=== PATIENT | male | born 1955 ===

== ENCOUNTER 2023-12-07 16:52 | Inpatient (IN) | payer OTHER ==
--- OUTSIDE RECORDS SUMMARY | 2023-12-07 18:52 | XMS REPORT | Continuity of Care Document ---
Author Name Unknown Address [address] [place] [address] [facility] Address 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 Role Phone Pcp, Patient Does Not Have A Primary Care Physic alex Only, Ang Db Test Attending Clinician Unavailabl e Therapy, [facility] Covid Infusion Attending Clinician Unavailable Misael Vitale MD Attending Clinician MISAEL VITALE Attending Clinician Unavailable Lashaun López RN Attending Clinician Unavailable Rosario Love MD Attending Clinician [phone] ROSARIO LOVE Attending Clinician Unavailable Payers Payer Name Policy Type Policy Number Effective Date Expirati on Date Source Allergies, Adverse Reactions, Alerts Allergy Name Allergy Type Status Severity Reaction(s) Onset Date Inactive Date Treating Clinician Comments Source NO KNOWN ALLERGIE S Drug Class Active [facility] Social History Social Habit Start Date Stop Date Quantity Comments Source Exposure to SARS-CoV-2 (event) Yes [facility] Sex Assigned At 1955 00:00:00 1955 00:00:00 [facility] Smoking Status Start Date Stop Date Source Unknown if ever smoked [facility] Medications Ordered Medication Name Filled Medication Name Start Date Stop Date Current Medication? Ordering Clinician Indication Dosage Frequency Signature (SIG) Comments Components Source casirivimab -imdevimab 1200 mg in 60 mL NS MINI-BAG 11-24 17:15: 00 11-24 16:10 :00 No [id number] 1200mg 1,200 mg, IV Infusion, ONCE, Administer over 20 Minutes, On Joya 11/24/20 at 1215, For 1 dose
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 &nbs p;
[facility] Vital Signs Vital Name Observation Time Observation Value Comments S saritha Systolic blood pressure 2020-11-24 16:48:00 137 mm[Hg] [facility] acute hospital Diastolic blood pressure 2020-11-24 16:48:00 82 mm[Hg] General acute hospital Heart rate 2020-11-24 16:48:00 89 /min [facility] Body temperature 2020-11-24 16:48:00 36.67 [facility] Respiratory rate 2020-11-24 16:48:00 16 /min [facility] Oxygen saturation in Arterial blood by Pulse oximetry 2020-11-24 16:48:00 93 /min [facility] acute hospital Body height 2020-11-24 15:26:00 175.3 cm [facility] Body weight 2020-11-24 15:26:00 86.183 kg [facility] BMI 2020-11-24 15:26:00 28.06 kg/m2 [facility] Encounters Start Date/Time End Date/Time Encounter Type Admission Type Attending Clinicians Care Facility Care Department Encounter ID Source 2020-11-29 00:00:00 2020-11-29 00:00:00 Telephone Only, Ang Db Test [facility] Nika Moreno?[facility] [id number] [facility] 2020-11-24 10:15:26 2020-11-24 11:15:26 Nurse Visit Therapy, [facility] Covid Infusion Misael Vitale [facility] [id number] [facility] 2020-11-24 10:30:00 2020-11-24 10:30:00 Outpatient [facility] [id number] [facility] 2020-11-24 10:30:00 2020-11-24 10:30:00 Outpatient MISAEL MALDONADO [facility] [id number] [facility] 2020-11-23 00:00:00 2020-11-23 00:00:00 Telephone Lashaun López [facility] [id number] [facility] 2020-11-21 13:48:15 2020-11-21 14:03:15 Laboratory Only Only, Ang Db Test [facility] Nika Moreno?T[facility] [id number] [facility] 2020-11-21 14:00:00 2020-11-21 14:00:00 Outpatient ROSARIO HENDERSON [facility] [id number] [facility]
[2023-12-07] MEDS ORDERED: ACETAMINOPHEN 500 MG TAB PO PRN (19:51)
[2023-12-07] MEDS ORDERED: BISACODYL 10 MG RECTAL SUPP PR PRN (20:09)
[2023-12-07] MEDS: INSULIN REGULAR (HUMAN) 100 UNIT/ML SQ SCH (21:00)
[2023-12-07] MEDS: ROSUVASTATIN 10 MG TAB PO SCH (22:14)
[2023-12-07] MEDS: HYDRALAZINE HCL 25 MG TABLET PO SCH (22:15)
[2023-12-07] MEDS: APIXABAN 2.5 MG TABLET PO SCH (22:15)
[2023-12-07] MEDS: carvediloL 6.25 MG TAB PO SCH (22:15)
[2023-12-08] MEDS: MAGNESIUM HYDROXIDE 8% 30 ML PO PRN (01:13)
[2023-12-08 04:48] LABS: Specific Gravity 1.028 (1.005-1.030); Sqamous Epithelial <5 /HPF (None Seen); Urine Bacteria None Seen /HPF (<20); Urine Bilirubin NEGATIVE (Negative); Urine Blood Negative (Negative); Urine Clarity Clear (Clear); Urine Color Yellow (Yellow); Urine Culture Reflex Order NOT NEEDED; Urine Glucose NEGATIVE (Negative); Urine Ketones TRACE (Negative); Urine Micro Reflex YN NO BILL MICROSCOPIC; Urine Mucus 1+ /HPF (None Seen); Urine Nitrite NEGATIVE (Negative); Urine Protein 1+ (Negative); Urine Urobilinogen Normal (Normal); Urine WBC <5 /HPF (<5); Urine pH 5.5 (5.0-7.0)
[2023-12-08 06:57] LABS: Absolute Basophils 0.1 K/uL (0-0.5); Absolute Eosinophils 0.7 K/uL (0-0.5); Absolute Monocytes 1.1 K/uL (0.1-1.3); Absolute Neutrophil 8.9 K/uL (1.8-8.0); Basophils % 1.1 % (0-1.3); Eosinophils % 5.2 % (0-4.4); Hematocrit 43.8 % (39.6-49.0); Hemoglobin 14.5 g/dL (13.6-17.9); Lymphocytes % 15.6 % (15.3-44.8); MCH 28.6 pg (27.0-35.0); MCHC 33.1 g/dL (32.0-36.0); MCV 86.5 fL (80-100); MPV 9.8 fL (7.6-11.3); Monocytes % 8.4 % (3.3-12.3); Neutrophils % 69.7 % (41.7-73.7); Platelets 307 thou/uL (152-406); RBC Red Blood Cell Count 5.06 M/uL (4.33-5.43); Red Cell Distribution Width 13.7 % (12.1-15.2)
[2023-12-08 07:11] LABS: Albumin 3.2 g/dL (3.4-5.0); Anion Gap 8.5 mEq/L (5.0-15.0); Magnesium 2.2 mg/dL (1.6-2.4); Potassium 3.5 mEq/L (3.5-5.1)
[2023-12-08] MEDS: ASPIRIN 81 MG CHEWABLE TABLET PO SCH (08:57)
[2023-12-08] MEDS: NICOTINE 14 MG/PAT TD SCH (08:58)
[2023-12-08] MEDS: hydroCHLOROthiazide 12.5 MG CAP PO SCH (08:59)
[2023-12-08] MEDS: POLYETHYL GLY 3350 17 GM/DOSE PO SCH (08:59)
[2023-12-08] MEDS: DOCUSATE NA/SENNA CONC 1 TAB PO SCH (08:59)
[2023-12-08] MEDS: METFORMIN HCL 500 MG TAB PO SCH (12:04)
--- NOTE | 2023-12-09 03:59 | HP ---
Date of Admission: 12/07/2023 Time Of Service: 4 p.m. Chief Complaint: "I had a stroke. My left arm is weak." History Of Present Illness: Mr. Ochoa is a 68-year-old patient with type 2 diabetes mellitus, hyper tension, dyslipidemia, and longstanding tobacco use, who developed left-sided weakness, face and arm, on 11/28 and fell in the shower and his had found him on the bathroom floor. He had difficulty articulating, with left arm and leg weakness and the emergency medical services were called. His ev aluation identified a right MCA stroke, aortic stenosis, aspiration pneumonia, diabetes mellitus leonardo g with dysarthria, dysphagia, dyslipidemia, hypertension. He has interstitial lung disease in additi on to nephrolithiasis and sinusitis. The patient did arrive within the window for thrombolysis and r eceived TNKs. He was followed by Cardiology, Neurology, Pulmonary Service and was evaluated for the need for therapy by Physical, Occupational, and Speech Therapy. He did have a swallowing study and n eeds to be on thickened liquid consistencies. He received IV antibiotics for pneumonia. Had his kid ramiro function evaluated and managed as he had elevated BUN from dehydration, elevated glucose and whit e blood cell count. During the patient's hospitalization, he has had significant decrease in his cap acity to transfer, perform mobilization with a rolling walker, and to perform his activities of daily living. As a result of his stroke and his debility related to the stroke and left-sided weakness, d ysarthria, dysphagia, and unstable gait with tendency to fall along with medical conditions, he is de termined to be an appropriate candidate for inpatient rehabilitation, where he will receive physical, occupational, and speech therapy. Currently, he is at a [id number] assistance with bed mob ility, ambulation with a rolling walker, and has a left arm platform walker. Inpatient therapy will help him to return to his prior level of functioning and decrease the risk of re-hospitalization. Past Medical History: As noted above. Allergies: NO KNOWN DRUG ALLERGIES. Medications: Tylenol 650 mg every 6 hours as needed, Eliquis 2.5 mg twice daily, aspirin 81 mg daily , Dulcolax 10 per rectum as needed for constipation, Coreg 6.25 mg twice daily, Apresoline 25 mg twic e daily, hydrochlorothiazide 12.5 mg daily, insulin sliding scale, milk of magnesia 30 mL daily as ne eded, melatonin 5 mg at bedtime, metformin 500 mg twice daily, nicotine patch 14 mg patch daily, Alec tor 10 mg at bedtime, Senokot 2 at bedtime. Laboratory Studies: White blood cell count is 12.7, hemoglobin 14.5, platelets 307. Sodium 140, pot assium 3.5, chloride 108, carbon dioxide 27, BUN 24, creatinine 1.01, glucose ranged from 97 to 165. Calcium 9.3, magnesium 2.2. Albumin 3.2, prealbumin 15.0. Urinalysis: Trace ketones, 11 to 20 red blood cells, 1+ total protein. X-ray/imaging: Chest x-ray, on 12/03, mild pulmonary vascular congestion and left bibasilar airspace disease. Brain MRI, prior to his inpatient rehabilitation admission, shows extensive acute CVA in t he right MCA territory. There is no evidence of hemorrhage, mass effect, or midline shift. Review of Systems: Mr. Ochoa admits to no bowel movements in about 10 days. Last bowel movement was the day of the str sima, which was on the and this is the . He has some loss of liquid at the left corner of th e mouth and admits to mild myalgias in the left upper and lower extremities, where there is significa nt paresis in the left arm more than the leg. Denies any depression or anxiety or stress related to his stroke. At this point, he says he feels he is making some recovery compared to where he was init ially. Otherwise, negative on systems review. Family History: He denies family history of stroke or myocardial infarction. Social History: Longstanding tobacco use. Some alcohol use. No IV drug use. Lives in a single-sto ry and one-floor house. Current Level Of Functioning: Supervision for eating, oral hygiene. Moderate assistance for toileti ng, showering, upper body dressing, lower body dressing, donning and doffing footwear. Also moderate assistance for rolling left to right, sit to lying, and lying to sitting at the side of bed and sit to stand, all moderate assistance. Transfer from bed to chair to commode, moderate assistance. Ambu lation: He ambulated with a platform walker with mod assist, less than 25 feet. Physical Examination: Vital Signs: Blood pressure 155/78, pulse 81, respiratory rate 17, temperature 97.8, oxygen saturati on 96%. General: Mr. Ochoa is resting in bed. He is in no acute distress. He appears normocephalic, atrau matic. Sclerae anicteric. Oropharynx moist. Neck: Supple. Chest: Clear. Heart: Regular. Extremities: Show no significant edema, cyanosis, or clubbing. Neurologic: He has decreased movement of the left nasolabial fold compared to the right side. He gleason s some evidence of his dinner at the left corner of his mouth. Decreased sensation in the left face compared to the right. There is some mild left-sided neglect and extinction noted. Motor: He is on the left proximal 3+/5, distally 2/5. In terms of wrist flexion and extension, he is stronger at th e deltoids and biceps around 3+/5. In the lower extremities, he is 4/5 proximally and distally. Sen pasquale: Decreased to light touch/temperature, left upper and lower versus the right upper and lower ex tremities. Coordination: Intact in the left and right. Reflexes are depressed in upper and lower e xtremities. Rehab And Medical Assessment: Mr. Ochoa is a 68-year-old patient, admitted to the inpatient rehabil itation unit with impairment category 01, stroke. His impairment group code is 01.1, left body invol vement, right brain. Etiologic diagnosis: Right middle cerebral artery cerebrovascular accident. C omorbidities are aortic stenosis, aspiration pneumonia, decreased mobility, decreased physical functi oning, dysarthria, dysphagia, dyslipidemia, hypertension, chronic tobacco use, diabetes mellitus, int erstitial lung disease, nephrolithiasis, mildly elevated white blood cell count. Plan: He will have physical, occupational, and speech therapy for 3.5 hours, 5 of 7 days. For const ipation, he will have Dulcolax suppository, milk of magnesia, Senokot, and Fleet enema as appropriate . For dyslipidemia, Crestor 10 mg at bedtime. Nicotine patch for his tobacco longstanding dependenc y. Diabetes mellitus, managed by metformin 500 mg twice daily and insulin sliding scale. Melatonin 5 mg at night for insomnia. For blood pressure and fluid management, he has hydrochlorothiazide in a ddition to the Apresoline and Coreg. For stroke risk reduction, aspirin 81 mg daily. For DVT risk r eduction, Eliquis 2.5 mg daily. Tylenol used for pain. Comorbidities That Are Impacting Rehabilitation: Mr. Ochoa does have longstanding tobacco use. He does have nicotine patch. We will watch for any signs of his withdrawal from tobacco. He has signif icant paresis in the left upper extremity. He has dysarthria, dysphagia. A repeat barium swallow ma y be indicated to assess his risk of further aspiration and to adjust the consistency of his diet. C hest x-ray may be done to evaluate for interval clearing of the pneumonia, which the patient came wit h and was treated for. He has a fall risk, fall precautions to be adhered to at all times. He has r isk factors for stroke, which are to be addressed and modified to decrease further stroke risk and be tter management of his hypertension, dyslipidemia, and diabetes mellitus. Rehab Specific Plan: Mr. 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 He will have speech to work on his dysphagia/dysarthria and to work on advancing to a more solid diet. Mr. Ochoa has a good understanding of the process of admission to the inpatient rehabilitation [facility], and how he will benefit from physical, occupational, and speech therapy. He will have 24 hours a day, 7 days a week skilled rehabilitation nursing, daily physician evaluation and management, and S ial Service evaluation and management. These services will help with assessing his immediate needs , communicating with physician about those needs, and ordering studies as appropriate. Social Servic es will help with discharge planning, home equipment, followup, and therapy after he is discharged. Given his complex medical condition and the risk of further complications, rehabilitation cannot be s afely or effectively performed at a lower level facility such as custodial. Barriers To Discharge: At this point, his big barriers would be to help him modify his risk factors, so that the different additional stroke does not occur. Also, he may have additional aspiration pne umonia and IV antibiotics may be needed. Also, he has been constipated for about 9 days and will req uire Fleet enema. He may require a KUB to rule out bowel obstruction. Length Of Stay: About 17 to 20 days. Disposition: Home with home health and care of family. Prognosis: Good. Rehab Goals: 1.Become independent with upper and lower body dressing, and donning and doffing footwear. 2.Independently mobilize with a left platform walker 250 feet. 3.Independently go up and down 10 steps with right-sided handrail. 4.Independently propel a wheelchair 250 feet with legs and right arm. 5.Independently perform cognitive functioning and decision making for safety, managing medications, and physician followup. The above goals were reviewed with Mr. Ochoa and he is in agreement. By signing this document, I acknowledge I personally performed a full physical examination on Mr. Evan tesfaye no later than 24 hours after his admission to the inpatient rehabilitation facility and determine d that he is able to tolerate the above course of treatment at an intensive level for a reasonable pe riod of time. A detailed individualized plan of care for him will be completed by hospital day 4 bas ed on the preadmission screen, history and physical, and therapy evaluations. GABRIELLE/PATITO Voice ID: [id number]
[2023-12-09 10:50] VITALS: BMI 29.7
--- NOTE | 2023-12-09 16:41 | RAD REPORT ---
Procedure: Chest Single View History: Chest pain Comparison: none The lungs appear clear of acute infiltrate. No significant pleural effusion noted. The heart is normal size. IMPRESSION: No acute abnormality is displayed.
[2023-12-09] MEDS: ENSURE ENLIVE 237 ML CAN PO SCH (19:35)
[2023-12-09] MEDS: carvediloL 6.25 MG TAB PO SCH (19:35)
[2023-12-09] MEDS: MELATONIN 5 MG TABLET PO PRN (22:32)
--- NOTE | 2023-12-09 22:56 | PN ---
Date of Progress Note: 12/09/2023 Time Of Service: 1:40 p.m. Subjective: Mr. Ochoa is resting in his room. He says he is feeling about the same. His left arm strength is not changed much. Still has significant weakness there, left face, perhaps slight more m ovement noted in the left corner from his stroke. Left leg is better than the arm. Objective: Denies any fevers, chills, nausea, vomiting. No myalgias, arthralgias, or rash. Physical Examination: Vital Signs: Blood pressure did range from 97/60 to 180/97, pulse is from 77 to 80, respiratory rate 16 to 18, temperature 97.6, oxygen saturation 96%. General: Again, Mr. Ochoa is lying in bed in between therapy sessions. HEENT: He appears normocephalic, atraumatic. Sclerae anicteric. Oropharynx pink, moist. Neck: Supple. Chest: Clear. Extremities: He does have mild edema in the lower extremity on the left compared to right side. Neurologic: In terms of neurological examination, significant weakness noted around 2/5 proximally a nd distally in the left upper extremity and down to 1 as he is unable to really move his fingers sign ificantly proximally. Slight improvement there in the strength in the left upper extremity. Decreas e of left nasolabial fold also perhaps slightly improved. Left leg slightly improved strength as wel l. Decreased sensation in left compared to right side. Laboratory Studies: Blood sugars range from 111 to 128. X-ray/imaging: A chest x-ray was done today to rule out aspiration pneumonia. This study showed no acute abnormalities being displayed. Heart normal size. No significant pleural effusion identified. Medications: Tylenol 650 mg every 6 hours as needed, Eliquis 2.5 mg twice daily, aspirin 81 mg daily , Coreg 6.25 mg daily at bedtime and during the morning 3.125 mg, Apresoline 25 mg twice daily, hydro chlorothiazide 12.5 mg daily, milk of magnesia 30 mg daily, mild insulin sliding scale, melatonin 5 m g at bedtime, metformin 500 mg twice daily, nicotine patch 14 mg daily, Ensure Enlive 237 mL daily, C restor 10 mg at bedtime, Senokot-S 2 twice daily. Progress Made With Physical, Occupational, And Speech Therapy: Today with physical therapy, he ambul ated 100 feet with a rolling walker with cues and another 10 feet without an assistive device, up and down 4 steps with right handrail with moderate assistance. With occupational therapy, did 10 sets h and gripper exercises 5 seconds each. Did work on toileting with minimum assistance. Bed mobility d one independently for supine to edge of bed. With his speech therapy, bedside swallow evaluation guerrero ws he was responding with thin liquids. Does have good bolus control. No pocketing with solids note d. He was put on a soft bite size diet, mildly thick liquids to prevent aspiration, and continue to work with therapy. Assessment: Mr. Ochoa is a 68-year-old patient in the rehabilitation unit with a right MCA CVA with significant left upper extremity weakness more than lower extremity and facial weakness, dysarthria, dysphagia. He has comorbid of constipation, which actually has been resolved after about 9 days. Momo olsen has diabetes mellitus addressed with metformin 5 mg twice daily, tobacco dependency addressed with nicotine patch 14 mg daily, Ensure Enlive for malnutrition, milk of mag for of course constipation, A presoline for heart rate and blood pressure control along with Coreg. He has Eliquis 2.5 mg twice da alejo for DVT risk reduction, aspirin 81 mg daily for stroke risk reduction, Tylenol for pain, and he w ill continue with physical, occupational, and speech therapy for 3.5 hours, 5 of 7 days. LB/MODL Voice ID: [id number] Report ID: [id number]
[2023-12-10] MEDS: carvediloL 3.125 MG TAB PO SCH (05:07)
[2023-12-10 07:10] LABS: Absolute Basophils 0.1 K/uL (0-0.5); Absolute Eosinophils 0.5 K/uL (0-0.5); Absolute Lymphocytes (CBC) 2.4 K/uL (0.7-4.9); Absolute Monocytes 1.1 K/uL (0.1-1.3); Basophils % 1.1 % (0-1.3); Eosinophils % 3.5 % (0-4.4); Hematocrit 40.8 % (39.6-49.0); Hemoglobin 13.6 g/dL (13.6-17.9); Lymphocytes % 18.5 % (15.3-44.8); MCH 28.7 pg (27.0-35.0); MCHC 33.4 g/dL (32.0-36.0); MCV 85.8 fL (80-100); MPV 9.4 fL (7.6-11.3); Monocytes % 8.3 % (3.3-12.3); Neutrophils % 68.6 % (41.7-73.7); Nucleated Red Blood Cells % 0.2 % (0-0); Platelets 331 thou/uL (152-406); RBC Red Blood Cell Count 4.76 M/uL (4.33-5.43); Red Cell Distribution Width 13.3 % (12.1-15.2)
[2023-12-10] MEDS: CRANBERRY FRUIT EXTRACT 200 MG CAP PO SCH (19:43)
--- NOTE | 2023-12-10 22:09 | PN ---
Date of Progress Note: 12/10/2023 Time Of Service: 1:45 p.m. Subjective: Mr. Ochoa is resting in bed. He is making slow progress with his recovery of the left- sided weakness from his right MCA CVA. Still has dense paresis of the left hand, more ability to mov e the proximal left arm. Left lower extremity also showing some improvement. Still has drooping of the corner of the left face from his stroke. Objective: No fevers, chills, nausea, vomiting. No significant myalgias, arthralgias, rash, headach e, weight change. Physical Examination: Vital Signs: Blood pressure 194/93, pulse 89, respiratory rate 18, temperature 97.6. Blood pressure s earlier today was 137/68, pulse 66. General: Again, Mr. Ochoa is resting in bed. He is in no acute distress. HEENT: He is normocephalic, atraumatic. Sclerae anicteric. Oropharynx moist. Neck: Supple. Chest: Clear. Extremities: Again decreased nasolabial fold on the left, weakness on the left upper and lower extre mity noted previously. Laboratory Studies: White blood cell count is 13.1, neutrophils are normal at 68.6, hemoglobin 13.6, platelets 33.1. Blood glucose ranged from 101 to 126. X-ray/imaging: No new x-rays or imaging. Medications: His medications have been reviewed. He is on Coreg, which is decreased down to 3.125 m g daily in the morning and 6.25 mg at night to decrease the orthostatic changes in the morning. Othe rwise, his medications have been continued unchanged. Progress Made With Physical, Occupational, And Speech Therapy: Today with physical therapy, supine-t o-sit at edge of bed, [id number] with contact guard assistance. He was able to mobilize a rolling walker 50 feet with moderate assistance. Gait training in the parallel bars, stepping forward and ba ckwards, working on lower extremity strength and stance. With his occupational therapy, continue to improve with safety transfers, upper body mechanics with transfers and fall prevention. Contact guar d assistance for completed urination in the standing position in the toilet due to impaired dynamic s tanding. Contact guard assistance for uzu-cz-lrdvo transfers. With his speech, he completed volitio nal swallows x8 with all over 5 seconds indicating swallowing delays is persisting. He did gliding f alsettos and completed 15 steps to improve laryngeal elevation, 4/4 unrelated pictures recalled after 5 minutes and 10-minute increments using space retrieval. Assessment And Plan: Mr. Ochoa is a 68-year-old patient with right MCA CVA, from which he is making fair improvement and recovering. He has constipation treated with Senokot, dyslipidemia treated wit h Crestor. For nutrition, treated with Ensure Enlive 237 mL twice daily, nicotine patch for tobacco withdrawal, metformin for diabetes mellitus at 500 mg twice daily, melatonin for insomnia, milk of ma gnesia for constipation, Coreg again adjusted as noted to manage blood pressures during the day which have been lower. He has aspirin for stroke risk reduction, Eliquis for DVT risk reduction. He will continue with 3.5 hours of physical, occupational, and speech therapy daily. GABRIELLE/PATITO Voice ID: [id number] Report ID: [id number]
[2023-12-11] MEDS: ENSURE HIGH PROTEIN 237 ML CAN PO SCH (19:55)
--- NOTE | 2023-12-12 00:47 | PN ---
Date of Progress Note: 12/11/2023 Time Of Service: 1:40 a.m. Subjective: Mr. Ochoa is lying in bed. He denies any improvement in the dense arm weakness in the left upper extremity, but he is actually able to move, lift the arm against gravity. Does have very little movement in the fingers on the left and on the wrist as well stroke was right MCA w ith left-sided weakness. Objective: He denies any myalgias, arthralgias. No fevers, chills. No new complaints. Physical Examination: Vital Signs: Blood pressure is 150/88, pulse is 65, respiratory rate 18, temperature of 97.9, and sa turation 99%. General: Mr. Ochoa is resting in bed. Again, decreased in the left nasolabial fold, left-sided wea kness, right side is improved in the upper extremity around 3-4 proximally and very little if any loo ked to be distally. Lower extremity on the left 3/5 to 4/5. Sensation decreased on the left compare d to the right side and unchanged. Laboratory Studies: No new laboratory studies except blood glucose ranged from 92 to 141. X-ray/imaging: No new x-rays or imaging. Medications: Medications are continued, unchanged, and have been reviewed. He does have the Ensure Enlive continued at 237 mL twice daily. Progress Made With Physical, Occupational, And Speech Therapy: Today, with physical therapy, ambulat ed 75 feet with a rolling walker, moderate assistance and somewhat impulsive. He did go up and down 4 steps with bilateral handrails. With occupational therapy, supervision for oral hygiene, also bega n need to improve safety awareness since transferring, reduced risk of fall and injury. With speech, completed gliding falsettos exercises, adequate laryngeal elevation, however still reduced. Volitio nal swallow completed with efforts and each was after 5-second delay. I planned for a repeat modifie d barium study to be done on 12/12/2023. Assessment: Mr. Ochoa is a 68-year-old patient admitted to the rehabilitation unit with right MCA s troke with dense paresis of the left upper extremity both distal and proximal. There is no movement proximally. Left face, weak. Some dysarthria, dysphagia. Barium swallow will be done tomorrow. Hi s comorbid conditions include insomnia, hypertension, constipation, dyslipidemia, tobacco dependency, diabetes mellitus, as noted. Plan: We will continue physical, occupational, and speech therapy 3.5 hours, 5 of 7 days. Continue aspirin 81 mg daily, Eliquis 2.5 mg twice daily, Tylenol for pain, Coreg for heart rate control has b een adjusted to 3.125 mg in morning and 6.25 mg at night, Apresoline 25 mg twice daily along with hyd rochlorothiazide for fluid management, Milk of magnesia for constipation, melatonin for insomnia, met formin 500 mg twice a day for his diabetes mellitus, nicotine patch 14 mg daily for tobacco withdrawa l, Ensure Enlive 237 mL twice daily, protocol, Crestor 10 mg at bedtime, Senokot-S 2 twice daily. We will continue course of physical, occupational, and speech therapy for 3.5 hours, 5 of 7 days. GABRIELLE/PATITO Voice ID: [id number] Report ID: [id number]
[2023-12-12 06:34] LABS: Absolute Basophils 0.1 K/uL (0-0.5); Absolute Eosinophils 0.9 K/uL (0-0.5); Absolute Lymphocytes (CBC) 2.8 K/uL (0.7-4.9); Absolute Monocytes 1.1 K/uL (0.1-1.3); Absolute Neutrophil 7.7 K/uL (1.8-8.0); Basophils % 1.2 % (0-1.3); Eosinophils % 7.2 % (0-4.4); Hematocrit 40.8 % (39.6-49.0); Hemoglobin 13.9 g/dL (13.6-17.9); Lymphocytes % 22.1 % (15.3-44.8); MCH 29.2 pg (27.0-35.0); MCV 85.8 fL (80-100); MPV 9.9 fL (7.6-11.3); Monocytes % 8.6 % (3.3-12.3); Neutrophils % 60.9 % (41.7-73.7); Nucleated Red Blood Cells % 0.3 % (0-0); Platelets 331 thou/uL (152-406); RBC Red Blood Cell Count 4.76 M/uL (4.33-5.43); Red Cell Distribution Width 13.6 % (12.1-15.2)
[2023-12-12 06:55] LABS: Albumin 3.4 g/dL (3.4-5.0); Anion Gap 8.7 mEq/L (5.0-15.0); Potassium 3.7 mEq/L (3.5-5.1); Prealbumin 16.1 mg/dL (20-40)
--- NOTE | 2023-12-12 12:27 | RAD REPORT ---
Modified barium swallow exam with speech pathology service HISTORY aspiration Fluoroscopy Time: 2.1 minutes 12 fluoroscopic spot series obtained Findings: Aspiration with cough with thin liquid via cup. Pharyngeal residue posterior wall. Decreased airway closure with aspiration during the swallow with thin liquids (1 of 4 swallows of thin liquid- large bolus) Osteophytes at c5 and c6.
--- NOTE | 2023-12-13 00:30 | PN ---
Date of Progress Note: 12/12/2023 Time Of Service: 1:35 p.m. Subjective: Mr. Ochoa is resting in bed. He is feeling somewhat better about his recovery and stro ke which affects the left upper extremity with significant paresis of his hand, however, is doing bet ter. He is feeling better about that. He is actually in the gym working at a table moving a bag, fa lling backwards on the table, and being able to move the fingers to grab the bag a little bit better than he did yesterday. Objective: No myalgias, arthralgias, or rash complaints. Physical Examination: Vital Signs: Blood pressure is 120/95, pulse 84, respiratory rate 16, temperature 97.9, oxygen satur ation 94%. General: Mr. Ochoa again is doing therapy in the gym. He does have the left nasolabial fold decrea se, decreased strength in the left upper extremity, proximally less so, and more weakness distally in left lower extremity. Left lower extremity, some strength improvement there, still 3 to 4/5. Laboratory Studies: White blood cell count 12.6, hemoglobin 13.9, platelets 333. Sodium 138, potass ium 3.7, chloride 104, BUN 37, creatinine 1.28, glucose 96 up to 175, calcium 9.9, magnesium 2.0, alb umin 3.4, prealbumin 16.1. X-ray/imaging: A modified barium swallow study was done. The study did show aspiration with large a lopez of liquid at the time of thin liquids. He is able to manage with small swallows. Study also showed osteophytes at C5 and C6. The patient's diet was kept with thin liquids with very small amoun ts of multiple swallows, chin-tuck technique and under supervision. Progress Made With Physical, Occupational, And Speech Therapy: With physical therapy today, stepping forward and backward with right lower extremity, working on left lower extremity sense. Suzie harvey, holding onto the right handrails for external support, did 5 sets. With occupational therapy, to lerated unsupported sitting for 35 minutes with left upper extremity with air splint. The patient de monstrated some impulsivity, required more verbalization of understanding and education on transfers to be appropriate. His was there to participate in therapy for training. Regarding speech, aga in, the patient had a modified barium swallow study. The pharyngeal phase, mild impairment to minimu m impairment and recommendation was the patient should be sitting at 90 degrees. No straws. Recomme nd thin liquids by cup small sips as the patient is noted that if the patient noted to be coughing wi th thin liquids, diet will be downgraded back to mildly thick or slightly thick liquids. Food textur e is soft bite size. Assessment: Mr. Ochoa is a 68-year-old patient in rehabilitation unit with stroke affecting his rig ht middle cerebral artery, dense paresis of left upper extremity and face and leg. He has full use o f the right upper and lower extremity. He has dysarthria, dysphagia. He has hypertension, constipat ion, dyslipidemia, tobacco dependency, diabetes mellitus. Plan: 1.Continue with physical, occupational, and speech therapy 3.5 hours, 5 of 7 days. 2.Continue with all comorbid condition medications including aspirin for stroke risk reduction, Eliq uis for DVT risk reduction, Dulcolax for constipation, Coreg for heart rate control, Apresoline for b lood pressure control, hydrochlorothiazide and diuretic for fluid management, melatonin for insomnia, Glucophage for diabetes mellitus, nicotine patch for tobacco dependency of any withdrawal, Crestor f or dyslipidemia, Senokot for constipation. LB/MODL Voice ID: [id number] Report ID: [id number]
[2023-12-13] MEDS ORDERED: ALBUTEROL 2.5 MG/3 ML NEB SOL NEB PRN (05:33)
[2023-12-13 06:10] LABS: Blood Gas Oxyhemoglobin 92.1 % (94-97); Blood O2 Saturation 94.3 % (92-98.5)
[2023-12-13 06:12] LABS: Blood Gas THB 15.3 g/dl (12-18)
[2023-12-13 06:15] LABS: Blood Gas Inspired Oxygen 0.2 %
--- NOTE | 2023-12-13 13:40 | P.RH.PN ---
Estimated Length of Stay: 13 Expected Discharge Date: 12/17/23 Discharge Disposition Plan: Home Family Support: Yes Residential Goal: Mobility, Transfers, Self Care Vital Signs: Last Vital Signs Temp 97.5 F 12/13/23 08:00 Pulse 73 12/13/23 09:56 Resp 18 12/13/23 08:00 BP 142/89 H 12/13/23 09:56 Pulse Ox 97 12/13/23 08:00 Laboratory: Laboratory Last Values WBC 12.60 thou/uL (4.3-10.9) H 12/12/23 05:11 RBC 4.76 M/uL (4.33-5.43) 12/12/23 05:11 Hgb 13.9 g/dL (13.6-17.9) 12/12/23 05:11 Hct 40.8 % (39.6-49.0) 12/12/23 05:11 MCV 85.8 fL (80-100) 12/12/23 05:11 MCH 29.2 pg (27.0-35.0) 12/12/23 05:11 MCHC 34.0 g/dL (32.0-36.0) 12/12/23 05:11 RDW 13.6 % (12.1-15.2) 12/12/23 05:11 Plt Count 331 thou/uL (152-406) 12/12/23 05:11 MPV 9.9 fL (7.6-11.3) 12/12/23 05:11 Neutrophils % 60.9 % (41.7-73.7) 12/12/23 05:11 Lymphocytes % 22.1 % (15.3-44.8) 12/12/23 05:11 Monocytes % 8.6 % (3.3-12.3) 12/12/23 05:11 Eosinophils % 7.2 % (0-4.4) H 12/12/23 05:11 Basophils % 1.2 % (0-1.3) 12/12/23 05:11 Absolute Neutrophils 7.7 K/uL (1.8-8.0) 12/12/23 05:11 Absolute Lymphocytes 2.8 K/uL (0.7-4.9) 12/12/23 05:11 Absolute Monocytes 1.1 K/uL (0.1-1.3) 12/12/23 05:11 Absolute Eosinophils 0.9 K/uL (0-0.5) H 12/12/23 05:11 Absolute Basophils 0.1 K/uL (0-0.5) 12/12/23 05:11 pH 7.41 (7.35-7.45) 12/13/23 05:40 pCO2 42.1 mmHG (35-45) 12/13/23 05:40 pO2 70.8 mmHG (75-100) L 12/13/23 05:40 HCO3 26.5 mmol/L (22-28) 12/13/23 05:40 Base Excess 2.4 mmol/L 12/13/23 05:40 Oxyhemoglobin 92.1 % (94-97) L 12/13/23 05:40 ABG O2 Sat (Measured) 94.3 % (92-98.5) 12/13/23 05:40 ABG Carboxyhemoglobin 1.0 % (0-1.5) 12/13/23 05:40 ABG Methemoglobin 1.3 % (0-1.5) 12/13/23 05:40 Other Total Hgb 15.3 g/dl (12-18) 12/13/23 05:40 Inspired O2 0.2 % 12/13/23 05:40 Sodium 138 mEq/L (136-145) 12/12/23 05:11 Potassium 3.7 mEq/L (3.5-5.1) 12/12/23 05:11 Chloride 104 mEq/L (98-107) 12/12/23 05:11 Carbon Dioxide 29 mEq/L (21-32) 12/12/23 05:11 Anion Gap 8.7 mEq/L (5.0-15.0) 12/12/23 05:11 BUN 37 mg/dL (7-18) H 12/12/23 05:11 Creatinine 1.28 mg/dL (0.70-1.30) 12/12/23 05:11 Est GFR (CKD-EPI) 61 ml/min (=/>90) L 12/12/23 05:11 Glucose 117 mg/dL (74-106) H 12/12/23 05:11 POC Glucose 107 mg/dL (65-120) 12/13/23 12:35 Calcium 9.9 mg/dL (8.5-10.1) 12/12/23 05:11 Magnesium 2.0 mg/dL (1.6-2.4) 12/12/23 05:11 Albumin 3.4 g/dL (3.4-5.0) 12/12/23 05:11 Prealbumin 16.1 mg/dL (20-40) L 12/12/23 05:11 Urine Color Yellow (Yellow) 12/08/23 04:00 Urine Clarity Clear (Clear) 12/08/23 04:00 Urine pH 5.5 (5.0-7.0) 12/08/23 04:00 Ur Specific Rayle 1.028 (1.005-1.030) 12/08/23 04:00 Glucose (UA)(Auto) Negative (Negative) 12/08/23 04:00 Urine Ketones Trace (Negative) H 12/08/23 04:00 Urine Blood Negative (Negative) 12/08/23 04:00 Urine Nitrite Negative (Negative) 12/08/23 04:00 Urine Bilirubin Negative (Negative) 12/08/23 04:00 Urine Urobilinogen Normal (Normal) 12/08/23 04:00 Ur Leukocyte Esterase Negative Angi/uL (Negative) 12/08/23 04:00 Urine RBC 11-20 /HPF (None Seen) H 12/08/23 04:00 Urine WBC <5 /HPF (<5) 12/08/23 04:00 Ur Squamous Epith Cells <5 /HPF (None Seen) 12/08/23 04:00 U Non-Squamous Epi Cells <5 /HPF (None Seen) 12/08/23 04:00 Urine Bacteria None seen /HPF (<20) 12/08/23 04:00 Urine Mucus 1+ /HPF (None Seen) 12/08/23 04:00 Urine Culture Reflexed Not needed 12/08/23 04:00 Urine Total Protein 1+ (Negative) H 12/08/23 04:00 Weight: 201 lb 4.8 oz Wound Present: No Closed Surgical Incision Present: Yes Negative Pressure Wound Therapy Present: No Physician Update: Labs reviewed and are stable. Left fatigue and neglect. MOCA 27, delayed swallow with decreased laryngeal elevation. Drink with small sips. Independent with bed mobility. Supervision with transfers. RW 100' with mod assist. Left neglect with tendency to fall. LUZ 29/56. Min assist bathing, dressing. CGA with transfers with OT. 0/5 LTG. 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 Please see the Rehabilitation Signature page for all necessary signatures.
[2023-12-14] MEDS ORDERED: DOCUSATE NA/SENNA CONC 1 TAB PO PRN (07:55)
[2023-12-14] MEDS ORDERED: POLYETHYL GLY 3350 17 GM/DOSE PO PRN (07:55)
[2023-12-16 21:41] VITALS: TEMP 97.7
--- NOTE | 2023-12-17 00:33 | PN ---
Date of Progress Note: 12/16/2023 Time Of Service: 1:45 p.m. Subjective: Mr. Ochoa is in bed, at the bedside. Still has significant lack of movement in th e left upper extremity, but slowly improving, but not yet functional. Left lower extremity slight be tter strength, but again still requiring much help to improve significantly. Objective: No recent fevers, chills, nausea, vomiting, myalgias, arthralgias, rash. No psychiatric complaints. Physical Examination: Vital Signs: Blood pressure 119/79, pulse 75, respiratory rate 16, temperature 97.3, O2 saturation 9 6%. General: Mr. Ochoa is lying in bed again. at bedside. He is in no significant distress. HEENT: Appears normocephalic, atraumatic. Sclerae anicteric. Oropharynx pink, moist. Decreased na solabial fold on the left, not liquids or food at this point. Neck: Supple. Extremities: Dense paresis of left lower extremity more than lower extremity. Laboratory Studies: Blood sugars today ranged from 89-170. X-ray/imaging: No new x-rays or imaging. Medications: Medications have been reviewed and are unchanged. Progress Made With Physical, Occupational, And Speech Therapy: Today with physical therapy, he ambul ated starting with a rolling walker 150 feet with minimum assistance. His left upper extremity was o n a rolling walker to simulate the walker hand with the splint. It was kept in place. Did ambulate in parallel bars, working on foot placement and did extend 10 feet forward and 10 feet backwards. Domínguez pine to and from sit was at independent level. He did attempt stairs, but that was difficult. He re quired significant assistance as he tried to manage 4 steps with moderate assistance. Wheelchair mob ilization was performed at 150 feet independently. With occupational therapy, donning and doffing of shoes independently. He again was encouraged to exercise as he is about to be discharged home in the morning and will continue therapy as indicated. With speech, he is able to tolerate thin liquids with small sips, chin tuck without signs of aspiration. Recommend to resume soft to regular diet at home with thin liquids, small amounts and chin tuck. MoCA test, he scored 28/30, improved f rom 27/30. Assessment: Mr. Ochoa is a 68-year-old patient with a right MCA stroke, dense paresis of left upper more than lower extremity, dysarthria, dysphagia, who is making great progress with physical and occ upational therapy, but still has a long way to go because of the dense paresis of the left lower extr emity. His comorbidities do include tobacco dependency. He has nicotine patch on board. He has con stipation, diabetes mellitus, hypertension, dyslipidemia, and some spasmodic pain in the l eft upper and lower extremity. Plan: 1.Will continue until discharge with physical, occupational, and speech therapy. 2.Continue with his list of medications for comorbid conditions which would include for hypertension , Apresoline and Coreg, aspirin for stroke risk reduction, Eliquis for DVT risk reduction, albuterol nebulizer for shortness of breath, Tylenol for pain, melatonin for insomnia, metformin for his diabet es mellitus, nicotine patch for tobacco dependency. He has Crestor for dyslipidemia. Continue with therapy until discharge tomorrow. GABRIELLE/PATITO Voice ID: [id number] Report ID: [id number]
[2023-12-17 06:40] VITALS: BP 118/81
== END 2023-12-17 10:15 | disposition home health service (06) | DRG 57 ==
LOC: 5TH 18:48
PROVIDERS: ADMIT Psychiatry & Neurology Neurology with Special Qualifications in Child Neurology; ATTEND Psychiatry & Neurology Neurology with Special Qualifications in Child Neurology
PROC: 4A033R1 Measurement of Arterial Saturation, Peripheral, Percutaneous Approach (ICD-10-PCS; principal; 2023-12-07)
DX: I69.354 Hemiplegia and hemiparesis following cerebral infarction affecting left non-dominant side (principal); I69.322 Dysarthria following cerebral infarction; I69.391 Dysphagia following cerebral infarction; R26.89 Other abnormalities of gait and mobility; E11.9 Type 2 diabetes mellitus without complications; K59.00 Constipation, unspecified; I10 Essential (primary) hypertension; E78.5 Hyperlipidemia, unspecified; F17.200 Nicotine dependence, unspecified, uncomplicated
CPT/HCPCS: 36415; 36600; 71045; 74230; 80048; 81001; 82040; 82805; 82947; 83735; 84134; 85025; 87086; 87088; 92523; 92526; 92610; 92611; 97032; 97112; 97116; 97129; 97130; 97140; 97161; 97165; 97530; 97760